=== PATIENT | male | born 1935 | race Caucasian/White ===

== ENCOUNTER 2017-12-16 07:51 | Inpatient (IN) | payer MEDICARE, OTHER ==
[2017-12-16] MEDS: SODIUM CHLORIDE 0.9% 1L BAG IV* (08:13)
[2017-12-16 08:28] LABS: ADD MAN DIFF? NO
[2017-12-16 08:31] LABS: ABNORMAL IP MESSAGE 1; BASOPHILS % 0.2 % (0.0-2.0); HEMATOCRIT 38.1 % (42.0-52.0); HEMOGLOBIN 12.4 g/dl (14.0-18.0); LYMPHOCYTES # 0.3 10^3/ul (0.8-2.9); LYMPHOCYTES % 2.8 % (15.0-51.0); MEAN CORPUSCULAR HEMOGLOBIN 31.1 pg (29.0-33.0); MEAN CORPUSCULAR HGB CONC 32.5 g/dl (32.0-37.0); MEAN CORPUSCULAR VOLUME 95.5 fl (82.0-101.0); MONOCYTE # 0.3 10^3/ul (0.3-0.9); MONOCYTES % 3.6 % (0.0-11.0); NEUTROPHIL # 8.8 10^3/ul (1.6-7.5); NEUTROPHILS % 92.9 % (39.0-77.0); PLATELET COUNT 131 10^3/UL (140-415); POSITIVE DIFF @See below; RED BLOOD COUNT 3.99 10^6/ul (4.70-6.10); RED CELL DISTRIBUTION WIDTH 14.2 % (11.5-14.5)
[2017-12-16 08:31] LABS: WHITE BLOOD COUNT 9.5 10^3/ul (4.8-10.8)
[2017-12-16 08:49] LABS: INR 1.01; PROTIME 13.4 Sec (11.9-14.9)
[2017-12-16 08:50] LABS: ALANINE AMINOTRANSFERASE 48 IU/L (13-69); ALBUMIN 3.7 g/dl (3.3-4.9); ALBUMIN/GLOBULIN RATIO 1.48; ALKALINE PHOSPHATASE 73 IU/L (42-121); ANION GAP 14 (8-16); ASPARTATE AMINO TRANSFERASE 33 IU/L (15-46); BILIRUBIN,INDIRECT 0.6 mg/dl (0-1.1); BILIRUBIN,TOTAL 0.6 mg/dl (0.2-1.3); BLOOD UREA NITROGEN 41 mg/dl (7-20); CARBON DIOXIDE 25 mmol/L (21-31); CHLORIDE 114 mmol/L (97-110); CREATININE 1.59 mg/dl (0.61-1.24); GLUCOSE 116 mg/dl (70-220); PARTIAL THROMBOPLASTIN TIME 26.7 Sec (25.0-35.0); POTASSIUM 4.1 mmol/L (3.5-5.1); SODIUM 149 mmol/L (135-144); TOTAL PROTEIN 6.2 g/dl (6.1-8.1)
[2017-12-16 09:01] LABS: TROPONIN-I 0.049 ng/ml (0.000-0.120)
[2017-12-16 09:07] LABS: LACTIC ACID 2.5 mmol/L (0.5-2.0)
[2017-12-16] MEDS: IPRATROPIUM (NEB) 0.5 MG/2.5 ML AMP NEB (09:38)
[2017-12-16] MEDS: ALBUTEROL 0.083% (NEB) 2.5 MG/3 ML AMP NEB (09:38)
[2017-12-16 09:52] LABS: B-TYPE NATRIURETIC PEPTIDE 3150 PG/ML (0-450)
[2017-12-16 10:13] LABS: ADD UMIC YES; UR ASCORBIC ACID NEGATIVE (NEGATIVE); UR BILIRUBIN (Dip) NEGATIVE (NEGATIVE); UR BLOOD (Dip) NEGATIVE (NEGATIVE); UR CLARITY CLEAR (CLEAR); UR COLOR YELLOW (YELLOW); UR GLUCOSE (Dip) NEGATIVE (NEGATIVE); UR KETONES (Dip) NEGATIVE (NEGATIVE); UR LEUKOCYTE ESTERASE (Dip) 2+ Leu/ul (NEGATIVE); UR NITRITE (Dip) NEGATIVE (NEGATIVE); UR RBC 2 /HPF (0-5); UR SPECIFIC GRAVITY (Dip) 1.018 (1.003-1.030); UR TOTAL PROTEIN (Dip) NEGATIVE (NEGATIVE); UR UROBILINOGEN (Dip) NEGATIVE (NEGATIVE); UR WBC 1 /HPF (0-5)
[2017-12-16] MEDS: CEFTRIAXONE 1 GM/50 ML (PMX) 50 ML IVPB (10:36)
[2017-12-16 11:07] LABS: LACTIC ACID 3.2 mmol/L (0.5-2.0)
[2017-12-16] MEDS: SOD CHLORIDE 0.9% 1,000 ML IV ×2 (11:12→12:48)
[2017-12-16] MEDS ORDERED: ONDANSETRON 4 MG INJ IV ×2 (11:30→12:00)
[2017-12-16] MEDS ORDERED: ACETAMINOPHEN 325 MG TAB PO (11:30)
[2017-12-16] MEDS ORDERED: NACL 0.9% 3 ML SYG IV (12:00)
[2017-12-16 12:37] LABS: HEMOGLOBIN A1C 5.8 % (0-5.9)
[2017-12-16 12:57] LABS: THYROID STIMULATING HORMONE 0.426 MIU/L (0.465-4.680)
[2017-12-16 12:59] LABS: FREE T4 (FREE THYROXINE) 1.02 ng/dl (0.85-1.93)
[2017-12-16 14:19] LABS: CREATINE KINASE 491 IU/L (23-200)
[2017-12-16] MEDS: ALBUTEROL 0.083% (NEB) 2.5 MG/3 ML AMP HHN (14:21)
[2017-12-16 14:23] LABS: LACTIC ACID 2.9 mmol/L (0.5-2.0)
[2017-12-16 14:32] LABS: CK INDEX 0.2; TROPONIN-I 0.021 ng/ml (0.000-0.120)
[2017-12-16] MEDS: HYDROCODONE/APAP (5/325) TAB PO ×2 (14:32→21:36)
[2017-12-16 14:34] LABS: CK-MB 1.07 ng/ml (0.0-2.4)
[2017-12-16 15:02] LABS: AADO2 Arterial 82.3 mmHg (7.0-24.0); Allen Test ACCEPTAB; Arterial Blood Gas Oxygen Sat 94.7 mmHG (95.0-100.0); Arterial COHb 0.9 % (0.0-3.0); Arterial Fraction of Oxyhgb 93.6 % (93.0-99.0); Arterial HCO3 19.6 mmol/L (22.0-26.0); Arterial MetHb 0.3 % (0.0-1.5); Arterial Total Hemglobin 12.3 g/dl (12.0-18.0); Arterial pCO2 31.4 mmhg (35-45); MODE NASAL CANNULA; Site Right Radial
[2017-12-16 15:39] LABS: FOLATE > 20.0 ng/ml (2.8-20.0)
[2017-12-16] MEDS: ATORVASTATIN 40 MG TAB PO (21:35)
[2017-12-16 23:40] LABS: CREATINE KINASE 721 IU/L (23-200)
[2017-12-16 23:50] LABS: CK INDEX 0.1; TROPONIN-I 0.023 ng/ml (0.000-0.120)
[2017-12-16 23:51] LABS: CK-MB 0.94 ng/ml (0.0-2.4)
[2017-12-17 07:29] LABS: ADD MAN DIFF? NO
[2017-12-17 07:33] LABS: ABNORMAL IP MESSAGE 1; BASOPHILS % 0.3 % (0.0-2.0); EOSINOPHILS % 0.3 % (0.0-7.0); HEMATOCRIT 34.7 % (42.0-52.0); HEMOGLOBIN 11.3 g/dl (14.0-18.0); LYMPHOCYTES # 0.6 10^3/ul (0.8-2.9); LYMPHOCYTES % 10.5 % (15.0-51.0); MEAN CORPUSCULAR HEMOGLOBIN 31.9 pg (29.0-33.0); MEAN CORPUSCULAR HGB CONC 32.6 g/dl (32.0-37.0); MEAN PLATELET VOLUME 10.1 fl (7.4-10.4); MONOCYTE # 0.4 10^3/ul (0.3-0.9); NEUTROPHIL # 4.7 10^3/ul (1.6-7.5); NEUTROPHILS % 81.4 % (39.0-77.0); PLATELET COUNT 84 10^3/UL (140-415); POSITIVE DIFF @See below; RED BLOOD COUNT 3.54 10^6/ul (4.70-6.10); RED CELL DISTRIBUTION WIDTH 14.7 % (11.5-14.5)
[2017-12-17 07:33] LABS: WHITE BLOOD COUNT 5.7 10^3/ul (4.8-10.8)
[2017-12-17 08:00] LABS: CREATINE KINASE 598 IU/L (23-200)
[2017-12-17 08:02] LABS: ALANINE AMINOTRANSFERASE 51 IU/L (13-69); ALKALINE PHOSPHATASE 61 IU/L (42-121); ANION GAP 8 (8-16); ASPARTATE AMINO TRANSFERASE 39 IU/L (15-46); BILIRUBIN,INDIRECT 0.5 mg/dl (0-1.1); BILIRUBIN,TOTAL 0.5 mg/dl (0.2-1.3); BLOOD UREA NITROGEN 23 mg/dl (7-20); CALCIUM 8.3 mg/dl (8.4-10.2); CARBON DIOXIDE 27 mmol/L (21-31); CHLORIDE 116 mmol/L (97-110); CREATININE 1.12 mg/dl (0.61-1.24); GLUCOSE 112 mg/dl (70-220); POTASSIUM 4.1 mmol/L (3.5-5.1); SODIUM 147 mmol/L (135-144); TOTAL PROTEIN 5.3 g/dl (6.1-8.1)
[2017-12-17 08:03] LABS: CHOL/HDL RATIO 2.8 RATIO; CHOLESTEROL 138 mg/dl (100-200); HDL CHOLESTEROL 48 mg/dl (31-75); LDL CHOLESTEROL,CALCULATED 56 mg/dl; TRIGLYCERIDES 172 mg/dl (0-149)
[2017-12-17 08:08] LABS: B-TYPE NATRIURETIC PEPTIDE 2790 PG/ML (0-450)
[2017-12-17 08:12] LABS: CK INDEX 0.2; TROPONIN-I 0.025 ng/ml (0.000-0.120)
[2017-12-17 08:20] LABS: CK-MB 1.07 ng/ml (0.0-2.4)
[2017-12-17] MEDS: CEFTRIAXONE 1 GM/50 ML (PMX) 50 ML IVPB (12:39)
[2017-12-17] MEDS: TAMSULOSIN (SR) 0.4 MG CAP PO (12:39)
[2017-12-17] MEDS: [UNRECOGNIZED DRUG - REMARK] XX ×2 (15:00→23:00)
[2017-12-17] MEDS: LABETALOL HCL 20MG INJ IV ×2 (17:31→22:45)
[2017-12-17] MEDS: ACETAMINOPHEN 325 MG TAB PO (18:07)
[2017-12-17] MEDS: ATORVASTATIN 40 MG TAB PO (20:44)
[2017-12-18] MEDS: [UNRECOGNIZED DRUG - REMARK] XX (04:03)
[2017-12-18] MEDS ORDERED: hydrALAzine 20 MG INJ IV (04:30)
[2017-12-18] MEDS: SOTALOL 80 MG TAB PO (08:42)
[2017-12-18] MEDS: TAMSULOSIN (SR) 0.4 MG CAP PO (08:43)
[2017-12-18] MEDS: DILTIAZEM (CD) 120 MG CAP PO (09:48)
[2017-12-18] MEDS: CEFTRIAXONE 1 GM/50 ML (PMX) 50 ML IVPB (11:01)
[2017-12-18] MEDS: LOSARTAN 25 MG TAB PO (11:17)
[2017-12-18] MEDS: AMLODIPINE 5 MG TAB PO (11:17)
[2017-12-18] MEDS: HYDROCODONE/APAP (5/325) TAB PO (11:49)
[2017-12-18] MEDS ORDERED: LOSARTAN 50 MG TAB PO (21:00)
== END 2017-12-18 12:55 | disposition home or self-care (01) | DRG 71 ==
LOC: E/R 07:51 → MS4 11:12
DX: G93.41 Metabolic encephalopathy (principal); E87.2 Acidosis; N17.9 Acute kidney failure, unspecified; E87.0 Hyperosmolality and hypernatremia; N39.0 Urinary tract infection, site not specified; I10 Essential (primary) hypertension; I95.1 Orthostatic hypotension; E78.00 Pure hypercholesterolemia, unspecified; I49.9 Cardiac arrhythmia, unspecified; Z87.820 Personal history of traumatic brain injury
CPT/HCPCS: 36415; 36600; 70450; 70551; 71045; 76775; 80053; 80061; 81001; 82306; 82550; 82553; 82607; 82652; 82746; 82803; 83036; 83605; 83735; 83880; 84100; 84439; 84443; 84484; 85025; 85610; 85730; 87040; 87086; 93005; 93306; 94664; 96374; 97161; 99291-25